=== PATIENT | male | born 1985 | race Caucasian/White ===

== ENCOUNTER 2018-08-17 18:59 | Observation (INO) | payer BC, OTHER ==
[~2018-08-17] VITALS: Ht 177.8 cm; Wt 90.7 kg
[2018-08-17] MEDS ORDERED: ACETAMINOPHEN 500 MG TAB (TYLENOL) PO ONE (19:45)
[2018-08-17] MEDS ORDERED: KETOROLAC 30 MG/ML VIAL IVP ONE (19:45)
[2018-08-17] MEDS ORDERED: NS IV 1000 ML 1,000 ML IV SCH (19:45)
[2018-08-17] MEDS ORDERED: ONDANSETRON 4 MG/2 ML (SDV) Z0FRAN IVP ONE (19:45)
[2018-08-17 19:50] LABS: WHITE BLOOD COUNT 23.6 10^3/uL (4.3-11.0)
[2018-08-17 19:51] LABS: BASOPHILS % (AUTO) 0 % (0-10); EOSINOPHILS % (AUTO) 1 % (0-10); HEMATOCRIT 45 % (40-54); HEMOGLOBIN 15.5 G/DL (13.3-17.7); LYMPHOCYTES # (AUTO) 1.1 X 10^3 (1.0-4.0); LYMPHOCYTES % (AUTO) 5 % (12-44); MEAN CORPUSCULAR HEMOGLOBIN 31 PG (25-34); MEAN CORPUSCULAR HGB CONC 34 G/DL (32-36); MEAN CORPUSCULAR VOLUME 92 FL (80-99); MEAN PLATELET VOLUME 8.7 FL (7.4-10.4); MONOCYTES % (AUTO) 6 % (0-12); NEUTROPHILS # (AUTO) 20.9 X 10^3 (1.8-7.8); NEUTROPHILS % (AUTO) 89 % (42-75); PLATELET COUNT 340 10^3/uL (130-400); RED CELL DISTRIBUTION WIDTH 12.3 % (10.0-14.5)
[2018-08-17 19:52] LABS: BASOPHILS # (AUTO) 0.1 10^3/uL (0.0-0.1); EOSINOPHILS # (AUTO) 0.1 10^3/uL (0.0-0.3); MONOCYTES # (AUTO) 1.3 X 10^3 (0.0-1.0)
[2018-08-17 19:58] LABS: BACTERIA,URINE NEGATIVE /HPF; BILIRUBIN,URINE NEGATIVE (NEGATIVE); CLARITY,URINE CLEAR; COLOR,URINE YELLOW; GLUCOSE, URINE (UA) NEGATIVE (NEGATIVE); KETONES,URINE NEGATIVE (NEGATIVE); LEUKOCYTE ESTERASE ,URINE NEGATIVE (NEGATIVE); NITRITE,URINE NEGATIVE (NEGATIVE); PH,URINE 6.5 (5-9); PROTEIN,URINE NEGATIVE (NEGATIVE); SQUAMOUS EPITHELIAL CELL,UR 0-2 /HPF; UROBILINOGEN,URINE 0.2 MG/DL (NORMAL); WBC,URINE 0-2 /HPF
[2018-08-17] MEDS ORDERED: IOHEXOL 350 MG/ML 100 ML (OMNIPAQUE 350) VIAL IV ONE (20:00)
[2018-08-17] MEDS ORDERED: NS 50 ML (IVPB) BAG IV ONE (20:00)
[2018-08-17] MEDS ORDERED: HOLD METFORMIN - RECEIVED CONTRAST 20 ML VIAL IV SCH (20:00)
[2018-08-17] MEDS ORDERED: CATHETER FLUSH 10 ML SYR IV PRN (20:00)
[2018-08-17 20:09] LABS: BAND NEUTROPHILS 4 %; BASOPHILS % (MANUAL) 0 %; EOSINOPHILS % (MANUAL) 1 %; LYMPHOCYTES % (MANUAL) 4 %; MONOCYTES % (MANUAL) 1 %; NEUTROPHILS % (MANUAL) 94 %
[2018-08-17 20:13] LABS: CHLORIDE 101 MMOL/L (98-107); SODIUM 139 MMOL/L (135-145)
[2018-08-17 20:14] LABS: ALANINE AMINOTRANSFERASE 23 U/L (0-55); ALKALINE PHOSPHATASE 87 U/L (40-136); BILIRUBIN,TOTAL 0.7 MG/DL (0.1-1.0); BUN/CREATININE RATIO 14; CALCIUM 9.9 MG/DL (8.5-10.1); CARBON DIOXIDE 23 MMOL/L (21-32); CREATININE SERUM 0.84 MG/DL (0.60-1.30); GFR ESTIMATED > 60; GLUCOSE 96 MG/DL (70-105); TOTAL PROTEIN 7.7 GM/DL (6.4-8.2)
[2018-08-17 20:15] LABS: LIPASE 21 U/L (8-78)
--- NOTE | 2018-08-17 21:09 | Diagnostic Imaging Report ---
PROCEDURE: CT abdomen and pelvis with contrast. TECHNIQUE: Multiple contiguous axial images were obtained through the abdomen and pelvis after administration of intravenous contrast. Auto Exposure Controls were utilized during the CT exam to meet ALARA standards for radiation dose reduction. INDICATION: Right lower quadrant abdominal pain. COMPARISON: None available. FINDINGS: The lung bases are clear and the visualized heart is normal in size. The liver, gallbladder, spleen, pancreas, and adrenal glands are normal. There is no biliary or pancreatic ductal dilatation demonstrated. The kidneys enhance symmetrically, without evidence of renal calculus, hydronephrosis, or suspicious renal mass. The ureters are normal. The stomach and duodenum are normal. The small bowel and colon are normal in course and caliber, without evidence of wall thickening or obstruction. The appendix is enlarged, measuring up to 9 mm distally. There is an apparent appendicolith in the appendiceal tip. There is mild periappendiceal inflammatory change. No ectopic gas or focal fluid collection is demonstrated. The aorta is nonaneurysmal. There is no evidence of venous thrombosis. There are scattered mildly prominent mesenteric lymph nodes in the right lower quadrant, likely reactive in nature. No enlarged lymph nodes are demonstrated. The bladder is normal. The prostate gland is not enlarged. No pelvic free fluid. The abdominal wall is unremarkable. No acute osseous abnormality. IMPRESSION: Acute appendicitis. No evidence of ectopic gas or abscess formation. Apparent appendicolith is noted in the appendiceal tip. Report given to Dr. Vargas at 9:09 p.m. 08/17/2018/cb Dictated by: Dictated on workstation # [id number]
--- NOTE | 2018-08-17 21:21 | ED Abdominal Pain ---
General Chief Complaint: Abdominal/GI Problems Stated Complaint: ABD PAIN, FEVER, CHILLS, NAUSEA Nursing Triage Note: pt states pain started around noon today to right upper abdomen with fever Sepsis Screen: Possible Sepsis Risk Source of Information: Patient History of Present Illness Date Seen by Provider: Aug 17, 2018 Time Seen by Provider: 21:21 Initial Comments 33-year-old male presenting with abdominal pain since around noon today. He last ate around 10:30 AM. Since then he has had pain that started in the middle of his abdomen and has moved to the right side. He also has had subjective fever and chills. He had tried laying down for about that has not helped with the symptoms. His pain is worsened throughout the afternoon and evening. He has not eaten anything since 10:30 this morning. He has been drinking some water in the afternoon. He has had vomiting as well as dry heaves this afternoon and evening. He denies having any previous surgeries on his belly. He has not had pain like this in the past. He had no pain with urination. He has no change in his bowels. Allergies and Home Medications Allergies Coded Allergies: No Known Drug Allergies (Unverified , 08/17/18) Patient Home Medication List Home Medication List Reviewed: Yes Review of Systems Review of Systems Constitutional: chills, fever, malaise EENTM: No Symptoms Reported Respiratory: No Symptoms Reported Cardiovascular: No Symptoms Reported Gastrointestinal: See HPI Genitourinary: See HPI Musculoskeletal: no symptoms reported Skin: no symptoms reported Psychiatric/Neurological: No Symptoms Reported Past Szopdse-Ldjowt-Jdqeuk Hx Past Med/Social Hx: Reviewed Nursing Past Med/Soc Hx Patient Social History Alcohol Use: Occasionally Uses Recreational Drug Use: No Smoking Status: Never a Smoker 2nd Hand Smoke Exposure: No Recent Foreign Travel: No Contact w/Someone Who Travel: No Recent Infectious Disease Expo: No Recent Hopitalizations: No Physical Abuse: No Sexual Abuse: No Mistreated: No Fear: No Seasonal Allergies Seasonal Allergies: No Past Medical History Surgeries: No Respiratory: No Cardiac: No Neurological: No Genitourinary: No Gastrointestinal: No Musculoskeletal: No Endocrine: No HEENT: No Cancer: No Psychosocial: No Integumentary: No Blood Disorders: No Physical Exam Vital Signs Vital Signs - First Documented 08/17/18 19:25 Temp 101.3 Pulse 93 Resp 20 B/P (MAP) 128/68 (88) Pulse Ox 100 O2 Delivery Room Air Capillary Refill : Less Than 3 Seconds Height/Weight/BMI Height: 5'10.00" Weight: 200lbs. oz. 90.071180ks; BMI Method:Stated General Appearance: WD/WN, no apparent distress HEENT: normal ENT inspection, pharynx normal Neck: non-tender, full range of motion, supple, normal inspection Respiratory: chest non-tender, lungs clear, normal breath sounds, no respiratory distress, no accessory muscle use Cardiovascular: normal peripheral pulses, regular rate, rhythm Gastrointestinal: soft, no pulsatile mass, abnormal bowel sounds (hypoactive), guarding, rebound (RLQ), tenderness (diffuse tenderness but worse in RLQ); No mass Rectal: deferred Extremities: normal range of motion, non-tender, normal inspection Neurologic/Psychiatric: alert, normal mood/affect, oriented x 3 Skin: normal color, warm/dry Progress/Results/Core Measures Results/Orders Lab Results Laboratory Tests Test 08/17/18 19:35 Range/Units White Blood Count 23.6 H 4.3-11.0 10^3/uL Red Blood Count 4.93 4.35-5.85 10^6/uL Hemoglobin 15.5 13.3-17.7 G/DL Hematocrit 45 40-54 % Mean Corpuscular Volume 92 80-99 FL Mean Corpuscular Hemoglobin 31 25-34 PG Mean Corpuscular Hemoglobin Concent 34 32-36 G/DL Red Cell Distribution Width 12.3 10.0-14.5 % Platelet Count 340 130-400 10^3/uL Mean Platelet Volume 8.7 7.4-10.4 FL Neutrophils (%) (Auto) 89 H 42-75 % Lymphocytes (%) (Auto) 5 L 12-44 % Monocytes (%) (Auto) 6 0-12 % Eosinophils (%) (Auto) 1 0-10 % Basophils (%) (Auto) 0 0-10 % Neutrophils # (Auto) 20.9 H 1.8-7.8 X 10^3 Lymphocytes # (Auto) 1.1 1.0-4.0 X 10^3 Monocytes # (Auto) 1.3 H 0.0-1.0 X 10^3 Eosinophils # (Auto) 0.1 0.0-0.3 10^3/uL Basophils # (Auto) 0.1 0.0-0.1 10^3/uL Neutrophils % (Manual) 94 % Lymphocytes % (Manual) 4 % Monocytes % (Manual) 1 % Eosinophils % (Manual) 1 % Basophils % (Manual) 0 % Band Neutrophils 4 % Urine Color YELLOW Urine Clarity CLEAR Urine pH 6.5 5-9 Urine Specific [place] 1.015 L 1.016-1.022 Urine Protein NEGATIVE NEGATIVE Urine Glucose (UA) NEGATIVE NEGATIVE Urine Ketones NEGATIVE NEGATIVE Urine Nitrite NEGATIVE NEGATIVE Urine Bilirubin NEGATIVE NEGATIVE Urine Urobilinogen 0.2 NORMAL MG/DL Urine Leukocyte Esterase NEGATIVE NEGATIVE Urine RBC (Auto) 1+ H NEGATIVE Urine RBC 5-10 H /HPF Urine WBC 0-2 /HPF Urine Squamous Epithelial Cells 0-2 /HPF Urine Crystals NONE /LPF Urine Bacteria NEGATIVE /HPF Urine Casts NONE /LPF Urine Mucus NONE /LPF Urine Culture Indicated NO Sodium Level 139 135-145 MMOL/L Potassium Level 4.0 3.6-5.0 MMOL/L Chloride Level 101 98-107 MMOL/L Carbon Dioxide Level 23 21-32 MMOL/L Anion Gap 15 H 5-14 MMOL/L Blood Urea Nitrogen 12 7-18 MG/DL Creatinine 0.84 0.60-1.30 MG/DL Estimat Glomerular Filtration Rate > 60 BUN/Creatinine Ratio 14 Glucose Level 96 70-105 MG/DL Calcium Level 9.9 8.5-10.1 MG/DL Corrected Calcium 8.5-10.1 MG/DL Total Bilirubin 0.7 0.1-1.0 MG/DL Aspartate Amino Transf (AST/SGOT) 16 5-34 U/L Alanine Aminotransferase (ALT/SGPT) 23 0-55 U/L Alkaline Phosphatase 87 40-136 U/L Total Protein 7.7 6.4-8.2 GM/DL Albumin 5.0 H 3.2-4.5 GM/DL Lipase 21 8-78 U/L My Orders Orders - JALIL SERRANO MD Comprehensive Metabolic Panel (08/17/18 19:40) Lipase (08/17/18 19:40) Ua Culture If Indicated (08/17/18 19:40) Ed Iv/Invasive Line Start (08/17/18 19:40) Cbc With Automated Diff (08/17/18 19:40) Ct Abdomen/Pelvis W (08/17/18 19:40) Ns Iv 1000 Ml (Sodium Chloride 0.9%) (08/17/18 19:45) Acetaminophen Tablet (Tylenol Tablet) (08/17/18 19:45) Ondansetron Injection (Zofran Injectio (08/17/18 19:45) Ketorolac Injection (Toradol Injection) (08/17/18 19:45) Iohexol Injection (Omnipaque 350 Mg/Ml 1 (08/17/18 20:00) Received Contrast (Hold Metformin- Contr (08/17/18 20:00) Sodium Chloride Flush (Catheter Flush Sy (08/17/18 20:00) Ns (Ivpb) (Sodium Chloride 0.9% Ivpb Bag (08/17/18 20:00) Manual Differential (08/17/18 19:35) Medications Given in ED Current Medications Medications Dose Ordered Sig/Andria Route Start Time Stop Time Status Last Admin Dose Admin Acetaminophen 1,000 mg ONCE ONCE PO 08/17/18 19:45 08/17/18 19:46 DC 08/17/18 19:51 1,000 MG Iohexol 100 ml ONCE ONCE IV 08/17/18 20:00 08/17/18 20:01 DC 08/17/18 20:11 100 ML Ketorolac Tromethamine 30 mg ONCE ONCE IVP 08/17/18 19:45 08/17/18 19:46 DC 08/17/18 19:52 30 MG Ondansetron HCl 4 mg ONCE ONCE IVP 08/17/18 19:45 08/17/18 19:46 DC 08/17/18 19:51 4 MG Sodium Chloride 10 ml NEEDED PRN IV 08/17/18 20:00 08/17/18 20:11 10 ML Sodium Chloride 50 ml ONCE ONCE IV 08/17/18 20:00 08/17/18 20:01 DC 08/17/18 20:11 50 ML Vital Signs/I&O 08/17/18 19:25 Temp 101.3 Pulse 93 Resp 20 B/P (MAP) 128/68 (88) Pulse Ox 100 O2 Delivery Room Air Blood Pressure Mean: 88 Progress Progress Note #1: Time: 19:45 Progress Note Check labs and with his fever and right sided abdominal pain there is a concern for appendicitis or cholecystitis so will check a CT scan of abdomen/pelvis. For pain will try Toradol 30 mg IV, for Fever Acetaminophen 1 gm po, for Nausea Zofran 4 mg IV, and give 1 L NS for hydration. Progress Note #2: Time: 21:30 Progress Note Labs show elevated WBC with left shift, Urine has blood present but no infection , Chemistry stable without acute significant abnormality. at [address]ology called that his CT showed acute appendicitis. Updated pt and family about report and labs. His pain and nausea are improved with treatment but he still has pain with palpation and rebound tenderness to RLQ. Will discuss with surgeon clinical education academic coordinator in [place] and arrange for transfer. Progress Note #3: Time: 21:37 Progress Note Spoke with Dr. Cutler and he accepted pt for transfer. Will give Zosyn for antibiotic and Morphine for pain. Continue with fluids for hydration and keep him NPO. Diagnostic Imaging Diagonstic Imaging: CT Plain Films/CT/US/NM/MRI: abdomen, pelvis Comments NAME: KEEGAN BENNETT [facility] REC#: [id number] PT STATUS: REG ER : 1985 PHYSICIAN: JALIL SERRANO MD ADMIT DATE: 08/17/18/ER FS Draft Date of Exam:08/17/18 CT ABDOMEN/PELVIS W PROCEDURE: CT abdomen and pelvis with contrast. TECHNIQUE: Multiple contiguous axial images were obtained through the abdomen and pelvis after administration of intravenous contrast. Auto Exposure Controls were utilized during the CT exam to meet ALARA standards for radiation dose reduction. INDICATION: Right lower quadrant abdominal pain. COMPARISON: None available. FINDINGS: The lung bases are clear and the visualized heart is normal in size. The liver, gallbladder, spleen, pancreas, and adrenal glands are normal. There is no biliary or pancreatic ductal dilatation demonstrated. The kidneys enhance symmetrically, without evidence of renal calculus, hydronephrosis, or suspicious renal mass. The ureters are normal. The stomach and duodenum are normal. The small bowel and colon are normal in course and caliber, without evidence of wall thickening or obstruction. The appendix is enlarged, measuring up to 9 mm distally. There is an apparent appendicolith in the appendiceal tip. There is mild periappendiceal inflammatory change. No ectopic gas or focal fluid collection is demonstrated. The aorta is nonaneurysmal. There is no evidence of venous thrombosis. There are scattered mildly prominent mesenteric lymph nodes in the right lower quadrant, likely reactive in nature. No enlarged lymph nodes are demonstrated. The bladder is normal. The prostate gland is not enlarged. No pelvic free fluid. The abdominal wall is unremarkable. No acute osseous abnormality. IMPRESSION: Acute appendicitis. No evidence of ectopic gas or abscess formation. Apparent appendicolith is noted in the appendiceal tip. Report given to Dr. Serrano at 9:09 p.m. 08/17/2018/boyd Dictated on workstation # [id number] Dict: 08/17/182034 Trans: 08/17/182108 [facility] [id number] Interpreted by: BRANDON ALEMAN DO Electronically signed by: Reviewed: Reviewed by Me (and reviewed report as well as positive finding called from radiologist) Departure Communication (Admissions) Time/Spoke to Admitting Phy: 21:[address] Cutler and he accepted pt for observation admit. Start Zosyn for antibiotics. Continue NPO, Maintenance fluids, Morphine for pain prn, Zofran for nausea prn, Tylenol prn fever over 101 F. Anticipate surgery in AM depending on when he gets to [place] and how he is doing. Impression Primary Impression: Acute appendicitis Qualified Codes: K35.30 - Acute appendicitis with localized peritonitis, without perforation or gangrene Disposition: ADMITTED INPATIENT Condition: Stable Admissions Decision to Admit Reason: Admit from ER (General) Decision to Admit/Date: Aug 17, 2018 Time/Decision to Admit Time: 21:37 Departure-Patient Inst. Referrals: NO,LOCAL PHYSICIAN (PCP) Primary Care Physician JALIL SERRANO MD Aug 17, 2018 21:21
[2018-08-17] MEDS ORDERED: morphine INJ 10 MG/ML 1ML (SYR OR VIAL) IVP STA (21:47)
[2018-08-17] MEDS ORDERED: PIPERACILLIN/TAZO 4.5 GM VIAL (ZOSYN) IV ONE (21:55)
[2018-08-17] MEDS ORDERED: morphine INJ 10 MG/ML 1ML (SYR OR VIAL) ONE (21:56)
[2018-08-17] MEDS ORDERED: PIPERACILLIN/TAZOBACTAM (BULK) 4.5 GM in NS (IVPB) 100 ML IV ONE (22:00)
[2018-08-17] MEDS: NS IV 1000 ML 1,000 ML IV SCH (22:05)
--- NOTE | 2018-08-17 23:10 | NUR ---
KEEGAN BENNETT admitted to room 409-1, with an admitting diagnosis of ACUTE APPENDICITIS , on 08/17/18 from [facility] via EMS, accompanied by EMS STAFF.KEEGAN BENNETT introduced to surroundings, call light, bed controls, phone, TV, temperature control, lights, meal times, smoking policy, visitor policy, side rail policy, bathrooms and showers. Patient Rights given to patient in the handbook.KEEGAN BENNETT verbalizes understanding that [facility] is not responsible for the loss or damage to any personal effects or valuables that are kept in the patients posession during their hospitalization.
[2018-08-18] MEDS ORDERED: morphine INJ 4 MG/ML 1 ML (VIAL/SYRINGE) IV PRN (03:15)
[2018-08-18] MEDS ORDERED: ONDANSETRON 4 MG/2 ML (SDV) Z0FRAN IV PRN (03:15)
[2018-08-18 04:00] VITALS: BP 105/54
[2018-08-18] MEDS ORDERED: PIPERACILLIN/TAZO 4.5 GM/NS 100 ML IV SCH ×4 (04:00→07:30)
[2018-08-18] MEDS: NS IV 1000 ML 1,000 ML IV SCH ×2 (04:46→12:16)
[2018-08-18] MEDS ORDERED: NS (IVPB) 100 ML ONE (04:50)
[2018-08-18] MEDS ORDERED: PIPERACILLIN/TAZO 4.5 GM VIAL (ZOSYN) IV ONE (04:50)
[2018-08-18 07:09] LABS: BASOPHILS % (AUTO) 0 % (0-10); EOSINOPHILS # (AUTO) 0.1 10^3/uL (0.0-0.3); EOSINOPHILS % (AUTO) 1 % (0-10); HEMATOCRIT 40 % (40-54); HEMOGLOBIN 13.9 G/DL (13.3-17.7); LYMPHOCYTES # (AUTO) 1.3 X 10^3 (1.0-4.0); LYMPHOCYTES % (AUTO) 8 % (12-44); MEAN CORPUSCULAR HEMOGLOBIN 31 PG (25-34); MEAN CORPUSCULAR HGB CONC 34 G/DL (32-36); MEAN CORPUSCULAR VOLUME 91 FL (80-99); MONOCYTES # (AUTO) 1.7 X 10^3 (0.0-1.0); MONOCYTES % (AUTO) 10 % (0-12); NEUTROPHILS # (AUTO) 13.6 X 10^3 (1.8-7.8); NEUTROPHILS % (AUTO) 81 % (42-75); PLATELET COUNT 307 10^3/uL (130-400); RED CELL DISTRIBUTION WIDTH 12.9 % (10.0-14.5); WHITE BLOOD COUNT 16.7 10^3/uL (4.3-11.0)
[2018-08-18 07:23] LABS: ALANINE AMINOTRANSFERASE 25 U/L (0-55); ALKALINE PHOSPHATASE 68 U/L (40-136); BILIRUBIN,TOTAL 1.2 MG/DL (0.1-1.0); BUN/CREATININE RATIO 13; CALCIUM 8.8 MG/DL (8.5-10.1); CARBON DIOXIDE 23 MMOL/L (21-32); CHLORIDE 109 MMOL/L (98-107); CREATININE SERUM 0.87 MG/DL (0.60-1.30); GFR ESTIMATED > 60; GLUCOSE 97 MG/DL (70-105); POTASSIUM 3.8 MMOL/L (3.6-5.0); SODIUM 139 MMOL/L (135-145); TOTAL PROTEIN 6.3 GM/DL (6.4-8.2)
[2018-08-18 07:48] VITALS: BP 110/59
[2018-08-18] MEDS ORDERED: LIDOCAINE PF 2% 5 ML (XYLOCAINE) VIAL ONE (08:37)
[2018-08-18] MEDS ORDERED: fentaNYL INJECTION 100 MCG/2 ML AMP ONE ×2 (08:37→10:51)
[2018-08-18] MEDS ORDERED: ONDANSETRON 4 MG/2 ML (SDV) Z0FRAN ONE (08:37)
[2018-08-18] MEDS ORDERED: proPOfol 200 MG/20 ML (DIPRIVAN) VIAL IV ONE (08:37)
[2018-08-18] MEDS ORDERED: MIDAZOLAM 2 MG/2 ML (VERSED) VIAL ONE (08:37)
[2018-08-18] MEDS ORDERED: DEXAMETHASONE 10 MG/ML (DECADRON) 1 ML VIAL ONE (08:37)
[2018-08-18] MEDS ORDERED: GLYCOPYRROLATE 0.2 MG/ML (ROBINUL) 2 ML VIAL ONE ×2 (08:39→10:46)
[2018-08-18] MEDS ORDERED: SEVOFLURANE (ULTANE) 15 ML INHAL SOLN ONE ×2 (08:39→11:07)
[2018-08-18] MEDS ORDERED: NEOSTIGMINE 1 MG/ML 5 ML SYRINGE ONE (08:39)
--- NOTE | 2018-08-18 08:49 | History & Physical-Surgical ---
History of Present Illness History of Present Illness Reason for visit/HPI CC: rlq abdominal pain Patient is a 33 year old male who yesterday around noon began having abdominal pain around umbilicus that the moved to right lower quadrant. Pain moderate to severe. No radiation. Having some fever. No nausea or vomiting. [place] every bump in the road. Movement makes worse. Laying still made a little better. Had a ct scan i reviewed consistent with appendicitis and appendicolith. Date of Admission Aug 17, 2018 at 21:40 Date Seen by a Provider: Aug 18, 2018 Time Seen by a Provider: 07:19 I consulted on this patient on 08/18/18 08:44 Attending Physician Jason Cutler DO Admitting Physician No,Local Physician Consult Allergies and Home Medications Allergies Coded Allergies: No Known Drug Allergies (Unverified , 08/17/18) Patient Home Medication List Home Medication List Reviewed: Yes Past Kdmxjos-Khfkft-Siqxam Hx Patient Social History Alcohol Use: Occasionally Uses Number of Drinks Today: 0 Recreational Drug Use: No Smoking Status: Never a Smoker 2nd Hand Smoke Exposure: No Recent Foreign Travel: No Contact w/Someone Who Travel: No Recent Infectious Disease Expo: No Recent Hopitalizations: No Physical Abuse Screen: No Sexual Abuse: No Seasonal Allergies Seasonal Allergies: No Surgeries History of Surgeries: No Respiratory History of Respiratory Disorde: No Cardiovascular History of Cardiac Disorders: No Neurological History of Neurological Disord: No Genitourinary History of Genitourinary Disor: No Gastrointestinal History of Gastrointestinal Di: No Musculoskeletal History of Musculoskeletal Dis: No Endocrine History of Endocrine Disorders: No HEENT History of HEENT Disorders: No Cancer History of Cancer: No Psychosocial History of Psychiatric Problem: No Integumentary History of Skin or Integumenta: No Blood Transfusions History of Blood Disorders: No Family Medical History Significant Family History: No Pertinent Family Hx Review of Systems Constitutional: see HPI EENTM: no symptoms reported Respiratory: no symptoms reported Cardiovascular: no symptoms reported Gastrointestinal: see HPI Genitourinary: no symptoms reported Musculoskeletal: no symptoms reported Skin: no symptoms reported Psychiatric/Neurological: No Symptoms Reported Physical Exam Vital Signs Vital Signs - First Documented 08/17/18 19:25 Temp 101.3 Pulse 93 Resp 20 B/P (MAP) 128/68 (88) Pulse Ox 100 O2 Delivery Room Air Capillary Refill : Less Than 3 Seconds Height, Weight, BMI Height: 5'10.00" Weight: 200lbs. 0.0oz. 90.876521oa; BMI Method:Stated General Appearance: No Apparent Distress HEENT: PERRL/EOMI Neck: Non Tender, Supple Respiratory: Chest Non Tender, No Accessory Muscle Use, No Respiratory Distress Cardiovascular: Regular Rate, Rhythm Gastrointestinal: Soft, Tenderness (right lower quadrant) Rectal: Deferred Back: No CVA Tenderness Extremity: Normal Inspection, Normal Range of Motion, Non Tender Neurologic/Psychiatric: Alert, Oriented x3, No Motor/Sensory Deficits, Normal Mood/Affect, nurses' registry director II-XII Norm as Tested Skin: Normal Color, Warm/Dry Lymphatic: No Adenopathy Data Review Labs Laboratory Tests 08/17/18 19:35: White Blood Count 23.6H, Red Blood Count 4.93, Hemoglobin 15.5, Hematocrit 45, Mean Corpuscular Volume 92, Mean Corpuscular Hemoglobin 31, Mean Corpuscular Hemoglobin Concent 34, Red Cell Distribution Width 12.3, Platelet Count 340, Mean Platelet Volume 8.7, Neutrophils (%) (Auto) 89H, Lymphocytes (%) (Auto) 5L , Monocytes (%) (Auto) 6, Eosinophils (%) (Auto) 1, Basophils (%) (Auto) 0, Neutrophils # (Auto) 20.9H, Lymphocytes # (Auto) 1.1, Monocytes # (Auto) 1.3H, Eosinophils # (Auto) 0.1, Basophils # (Auto) 0.1, Neutrophils % (Manual) 94, Lymphocytes % (Manual) 4, Monocytes % (Manual) 1, Eosinophils % (Manual) 1, Basophils % (Manual) 0, Band Neutrophils 4, Urine Color YELLOW, Urine Clarity CLEAR, Urine pH 6.5, Urine Specific [place] 1.015L, Urine Protein NEGATIVE, Urine Glucose (UA) NEGATIVE, Urine Ketones NEGATIVE, Urine Nitrite NEGATIVE, Urine Bilirubin NEGATIVE, Urine Urobilinogen 0.2, Urine Leukocyte Esterase NEGATIVE, Urine RBC (Auto) 1+H, Urine RBC 5-10H, Urine WBC 0-2, Urine Squamous Epithelial Cells 0-2, Urine Crystals NONE, Urine Bacteria NEGATIVE, Urine Casts NONE, Urine Mucus NONE, Urine Culture Indicated NO, Sodium Level 139, Potassium Level 4.0, Chloride Level 101, Carbon Dioxide Level 23, Anion Gap 15H, Blood Urea Nitrogen 12, Creatinine 0.84, Estimat Glomerular Filtration Rate > 60, BUN/ Creatinine Ratio 14, Glucose Level 96, Calcium Level 9.9, Corrected Calcium , Total Bilirubin 0.7, Aspartate Amino Transf (AST/SGOT) 16, Alanine Aminotransferase (ALT/SGPT) 23, Alkaline Phosphatase 87, Total Protein 7.7, Albumin 5.0H, Lipase 21 08/18/18 06:15: White Blood Count 16.7H, Red Blood Count 4.42, Hemoglobin 13.9, Hematocrit 40, Mean Corpuscular Volume 91, Mean Corpuscular Hemoglobin 31, Mean Corpuscular Hemoglobin Concent 34, Red Cell Distribution Width 12.9, Platelet Count 307, Mean Platelet Volume 9.0, Neutrophils (%) (Auto) 81H, Lymphocytes (%) (Auto) 8L , Monocytes (%) (Auto) 10, Eosinophils (%) (Auto) 1, Basophils (%) (Auto) 0, Neutrophils # (Auto) 13.6H, Lymphocytes # (Auto) 1.3, Monocytes # (Auto) 1.7H, Eosinophils # (Auto) 0.1, Basophils # (Auto) 0.0, Sodium Level 139, Potassium Level 3.8, Chloride Level 109H, Carbon Dioxide Level 23, Anion Gap 7, Blood Urea Nitrogen 11, Creatinine 0.87, Estimat Glomerular Filtration Rate > 60, BUN/ Creatinine Ratio 13, Glucose Level 97, Calcium Level 8.8, Corrected Calcium 8.8 , Total Bilirubin 1.2H, Aspartate Amino Transf (AST/SGOT) 17, Alanine Aminotransferase (ALT/SGPT) 25, Alkaline Phosphatase 68, Total Protein 6.3L, Albumin 4.0 Assessment/Plan Assessment/Plan Admission Diagonsis acute appendicitis rlq abdominal pain Admission Status: Observation Assessment/Plan acute appendicitis rlq abdominal pain discussed risks and benefits of laparoscopic appendectomy all other indicated procedures and patient wishes to proceed. npo iv hydration consent On zosyn. Clinical Quality Measures DVT/VTE Risk/Contraindication: RFS Level Per Nursing on Admit: 0=No Risk/No VTE PPX JASON CUTLER DO Aug 18, 2018 08:49
[2018-08-18] MEDS ORDERED: BUP/EPI 0.5% 1:200,000 (SENSORCAINE) 30 ML VIAL ONE (09:17)
[2018-08-18] MEDS ORDERED: LIDOCAINE 1% INJ 20 ML 20 ML VIAL ONE (09:18)
[2018-08-18] MEDS ORDERED: LACTATED RINGERS 1,000 ML IV PRN (09:42)
[2018-08-18] MEDS ORDERED: ROCURONIUM 10 MG/ML 5 ML SYRINGE IV ONE (10:49)
[2018-08-18] MEDS ORDERED: ACHD5005 PO (10:57)
[2018-08-18] MEDS ORDERED: DOCU-143 PO (10:57)
[2018-08-18] MEDS ORDERED: HYDROcodone/APAP 5 MG/325 MG (LORTAB) TAB PO PRN (11:00)
--- NOTE | 2018-08-18 11:00 | Discharge Inst-Simple/Standard ---
Discharge Inst-Standard Discharge Medications New, Converted or Re-Newed RX: RX on Chart Patient Instructions/Follow Up Plan of Care/Instructions/FU: 2 weeks Cutler Activity as Tolerated: No Discharge Diet: Regular Diet Other Inst to Patient Follow up Appt: Make appointment for 2 weeks. Instructions: No lifting greater than 10 pounds. No strenuous activity. May shower in 24 hours, no tub bath or soaking. Use incentive spirometer at home as directed. No Smoking Skin/Wound Care: You have special glue over incisions it will fall off on its own. Symptoms to Report: Appetite Changes, Extremity Discoloration, Numbness/Tingling, Swelling Increased , Bleeding Excessive, Eyesight Changes, Pain Increased, Urine Color Change, Constipation(Persistent), Fever over 101 degree F, Pain/Pressure in chest, Urinating Difficulty, Cough Up/Vomit Blood, Heart Beat Irreg/Pounding, Pain/ Pressure in jaw, Vaginal Bleeding Increase, Cramps in feet or legs, Lightheadedness, Pain/Pressure in shoulder, Diarrhea(Persistent), Memory Changes Suddenly, Questions/Concerns, Weight gain consecutive days, Dizziness/ Fainting, Nausea/Vomiting, Shortness of Breath, Weight gain over 2 pounds If questions or concerns contact your physician Or seek help at emergency department. JASON CUTLER DO Aug 18, 2018 11:00
--- NOTE | 2018-08-18 11:02 | Progress Note-Post Operative ---
Post-Operative Progess Note Surgeon (s)/Knife Changer (s) Surgeon JASON HAQUE DO Knife Changer: na Pre-Operative Diagnosis appendicitis Post-Operative Diagnosis same Procedure & Operative Findings Date of Procedure 08/18/18 Procedure Performed/Findings lap appy Anesthesia Type gen Estimated Blood Loss Estimated blood loss (mL): min Specimens/Packing Specimens Removed appendix JASON HAQUE DO Aug 18, 2018 11:02
[2018-08-18] MEDS ORDERED: MEPERIDINE (DEMEROL) INJ 50 MG/ML IVP ONE (11:15)
[2018-08-18] MEDS ORDERED: ONDANSETRON 4 MG/2 ML (SDV) Z0FRAN IVP PRN (11:15)
[2018-08-18] MEDS ORDERED: fentaNYL INJECTION 100 MCG/2 ML AMP IVP ONE (11:15)
[2018-08-18] MEDS ORDERED: morphine INJ 10 MG/ML 1ML (SYR OR VIAL) IVP ONE (11:15)
--- NOTE | 2018-08-18 12:05 | NUR ---
Pt returned from PACU via bed, per ARNOLDO Taylor. Report given to this RN. Pt awake and alert and states her pain is about a 4. Pt up to bathroom with just standby assist.
[2018-08-18 12:14] VITALS: BP 119/69
[2018-08-18] MEDS: PIPERACILLIN/TAZO 4.5 GM/NS 100 ML IV SCH ×4 (12:15→20:31)
--- NOTE | 2018-08-18 15:16 | NUR ---
Initial visit with pt, his , mother and grandmother. Pt demonstrated positive attitude and states he hopes to return home soon. Pt and his family shared they have no lee affiliation, however appreciated inspector air carrier's supportive and uplifting visit.
[2018-08-18 16:00] VITALS: BP 119/64
--- NOTE | 2018-08-18 16:25 | OPERATIVE REPORT ---
DATE OF SERVICE: 08/18/2018 PREOPERATIVE DIAGNOSIS: Appendicitis. POSTOPERATIVE DIAGNOSIS: Appendicitis. PROCEDURE: Laparoscopic appendectomy. SURGEON: Jason Cutler DO. ANESTHESIA: General. ESTIMATED BLOOD LOSS: Minimal. COMPLICATIONS: None. INDICATIONS FOR PROCEDURE: The patient is a 33-year-old male, who started having abdominal pain yesterday and workup and signs and symptoms were consistent with appendicitis. He was transferred from [place] and placed on antibiotics. The patient was discussed risks and benefits of the procedure and wished to proceed with procedure. Consent was signed on the chart. DESCRIPTION OF PROCEDURE: The patient was taken to the operating suite, was prepped and draped in a sterile fashion. Surgical pause was performed. Local anesthetic was infiltrated at the umbilicus level. An 11 blade scalpel was used to make a 5 mm incision. Cautery was used to dissect down the fascia, grasped and elevated. Veress needle was inserted. Pneumoperitoneum was achieved. Under direct visualization of the laparoscope, a 5 mm trocar was then placed using a Visiport. Once into the abdomen, a 5 mm trocar was placed in the suprapubic region and a 12 mm trocar was placed in the left lower quadrant, all under visualization of the scope. The appendix was inflamed, erythematous, dilated and rigid. It was grasped and elevated. The [place] was dissected around the base of the appendix. An Endo-TANK 2.5 stapler was fired across the base of the appendix. Endo-TANK 2.0 reload was then fired across the mesoappendix. Hemostasis was present. The abdomen was irrigated and suctioned. Hemostasis was achieved. The appendix was placed in an Endobag and removed through the 12 mm trocar site. The fascial defect at the 12 mm incision was then closed using a 0 Vicryl with an Endoclose. The abdomen was then desufflated and the trocars were removed. The skin was then closed using a 4-0 Monocryl in a subcuticular fashion. The abdomen was washed and dried and Skin Affix was placed over the incisions. The patient tolerated the procedure well without any complications and taken to the recovery room in stable condition. Job ID: [id number] DocumentID: [id number] Dictated Date: 08/18/2018 11:33:45 [employer] Date: 08/18/2018 16:25:08 Dictated By: JASON CUTLER DO
[2018-08-18 20:50] VITALS: BP 124/62
[2018-08-19] VITALS: BP 103/65
--- NOTE | 2018-08-19 07:40 | Anesthesia-General Post-Op ---
General Patient Condition Mental Status/LOC: Same as Preop Cardiovascular: Satisfactory Nausea/Vomiting: Absent Respiratory: Satisfactory Pain: Controlled Complications: Absent Post Op Complications Complications None Follow Up Care/Instructions Patient Instructions None needed. Anesthesia/Patient Condition Patient Condition Patient is doing well, no complaints, stable vital signs, no apparent adverse anesthesia problems. No complications reported per nursing. ADALI TERRY CRNA Aug 19, 2018 07:40
[2018-08-19 08:00] VITALS: BP 124/78
--- NOTE | 2018-08-19 19:54 | Progress Note ---
Subjective Date Seen by a Provider: Aug 19, 2018 Time Seen by a Provider: 08:00 Subjective/Events-last exam Doing well. Pain controlled. Feeling better. Tolerating diet. Denies n/v fever sweats chills shortness of breath or chest pain. Wanting to go home. Objective Exam Vital Signs Date Time Temp Pulse Resp B/P (MAP) Pulse Ox O2 Delivery O2 Flow Rate FiO2 08/19/18 11:30 08/19/18 08:20 Room Air 08/19/18 08:00 99.0 74 18 124/78 (93) 100 Room Air 08/19/18 00:00 98.7 82 20 103/65 (78) 96 Room Air 08/18/18 20:50 98.0 88 18 124/62 (82) 98 Room Air I & O 08/19/18 07:00 Intake Total 5349 ml Output Total 85 ml Balance 5264 ml Capillary Refill : Less Than 3 Seconds General Appearance: No Apparent Distress HEENT: PERRL/EOMI Neck: Non Tender, Supple Respiratory: Chest Non Tender, No Accessory Muscle Use, No Respiratory Distress Cardiovascular: Regular Rate, Rhythm Gastrointestinal: soft, no pulsatile mass, tenderness (incisional); No mass Extremity: Normal Inspection, Normal Range of Motion, Non Tender Neurologic/Psychiatric: Alert, Oriented x3, No Motor/Sensory Deficits, Normal Mood/Affect, 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 Final Diagnosis acute appendicitis rlq abdominal pain s/p laparoscopic appendectomy Clinical Quality Measures DVT/VTE Risk/Contraindication: RFS Level Per Nursing on Admit: 0=No Risk/No VTE PPX JASON HAQUE DO Aug 19, 2018 19:54
== END 2018-08-19 11:30 | disposition home or self-care (01) ==
LOC: ER FS 19:01 → 4TH 21:40
PROVIDERS: ADMIT Surgery; ATTEND Surgery
DX: K35.80 Unspecified acute appendicitis (principal)
CPT/HCPCS: 36415; 74177; 80053; 81000; 83690; 85007; 85025; 85027; 94664